=== PATIENT | male | born 1985 | race Two or more races ===

== ENCOUNTER 2025-03-22 06:49 | Outpatient (CLI) | payer BC ==
[2025-03-22 07:06] LABS: Urine Protein, UAD Negative (Negative)
[2025-03-22 07:12] LABS: Hematocrit 47.0 % (41.0-53.0); Hemoglobin 16.6 g/dL (13.5-17.5); Mean Corpuscular Hemoglobin 29.9 pg (28.0-32.0); Mean Corpuscular Volume 84.4 fL (80.0-100.0); Nucleated Red Blood Cells % 0.1 %
[2025-03-22 07:39] LABS: Alanine Aminotransferase 35 U/L (7-40); Albumin 4.7 g/dL (3.2-4.8); Alkaline Phosphatase 108 U/L (46-116); Anion Gap 11 (5-15); BUN/Creatinine Ratio 12.9 (10.0-20.0); Blood Urea Nitrogen 12 mg/dL (9-23); Calcium 9.6 mg/dL (8.7-10.4); Carbon Dioxide 26 mmol/L (20-31); Chloride 103 mmol/L (98-107); Cholesterol 149 mg/dL (< 200); Glucose 96 mg/dL (74-106); Sodium 140 mmol/L (136-145); Total Protein 7.0 g/dL (5.7-8.2)
[2025-03-22 07:40] LABS: Bilirubin, Total 0.4 mg/dL (0.2-1.0)
[2025-03-22 07:46] LABS: HDL Cholesterol 32 mg/dL (40-59); Potassium 3.5 mmol/L (3.5-5.1); Triglycerides 378 mg/dL (< 150)
== END 2025-03-22 17:00 | disposition home or self-care (01) ==
LOC: LAB 06:49
PROVIDERS: ATTEND Nurse Practitioner
DX: I10 Essential (primary) hypertension (principal); E78.5 Hyperlipidemia, unspecified; R53.83 Other fatigue; R73.9 Hyperglycemia, unspecified
CPT/HCPCS: 36415; 80053; 80061; 81001; 83036; 84443; 85025